=== PATIENT | female | born 1995 | race Two or more races ===

== ENCOUNTER 2018-11-11 11:42 | Emergency (ER) | payer OTHER ==
[~2018-11-11] VITALS: Ht 175.3 cm; Wt 83.9 kg
[2018-11-11] MEDS ORDERED: FOLIC ACID1 MG (11:54)
== END 2018-11-11 13:34 | disposition home or self-care (01) ==
LOC: ER 11:42
DX: O26.893 Other specified pregnancy related conditions, third trimester (principal); A49.3 Mycoplasma infection, unspecified site

== ENCOUNTER 2019-02-19 10:45 | Inpatient (IN) | payer OTHER ==
[~2019-02-19] VITALS: Ht 175.3 cm; Wt 94.8 kg
[~2019-02-19 10:45] MED LIST: FOLIC ACID1 MG
[2019-02-19] MEDS ORDERED: PRENATAL CAPLE1 EAC1 PO (12:07)
== END 2019-02-21 13:35 | disposition home or self-care (01) | DRG 807 ==
LOC: LDR 10:45 → OB/GYN 18:45
PROVIDERS: ADMIT Obstetrics & Gynecology
PROC: 10E0XZZ Delivery of Products of Conception, External Approach (ICD-10-PCS; principal; 2019-02-19)
PROC: 0HQ9XZZ Repair Perineum Skin, External Approach (ICD-10-PCS; 2019-02-19)
PROC: 3E033VJ Introduction of Other Hormone into Peripheral Vein, Percutaneous Approach (ICD-10-PCS; 2019-02-19)
PROC: 10907ZC Drainage of Amniotic Fluid, Therapeutic from Products of Conception, Via Natural or Artificial Opening (ICD-10-PCS; 2019-02-19)
PROC: 4A1HXCZ Monitoring of Products of Conception, Cardiac Rate, External Approach (ICD-10-PCS; 2019-02-19)
DX: O70.0 First degree perineal laceration during delivery (principal); Z37.0 Single live birth; Z3A.38 38 weeks gestation of pregnancy; Z22.330 Carrier of Group B streptococcus

== ENCOUNTER 2021-05-31 19:28 | Emergency (ER) | payer OTHER ==
[~2021-05-31] VITALS: Ht 175.3 cm; Wt 67.6 kg
[~2021-05-31 19:28] MED LIST changes: +PRENATAL CAPLE1 EAC1 PO
[2021-05-31] MEDS ORDERED: ZOVIRAX200 MG (19:46)
== END 2021-06-01 00:02 | disposition left against medical advice (07) ==
LOC: ER 19:28
DX: J06.9 Acute upper respiratory infection, unspecified (principal); R30.0 Dysuria